=== PATIENT | female | born 1990 | race Two or more races ===

== ENCOUNTER 2022-06-20 06:36 | Outpatient (CLI) | payer OTHER | END 2022-06-20 06:45 | disposition home or self-care (01) | LOC: LAB 06:36 | PROVIDERS: ATTEND Surgery | DX: Z03.818 Encounter for observation for suspected exposure to other biological agents ruled out (principal) ==

== ENCOUNTER 2022-06-21 05:25 | Day surgery (SDC) | payer OTHER | END 2022-06-21 12:25 | disposition home or self-care (01) | LOC: AMB-ENDOS 05:25 | PROVIDERS: ATTEND Surgery | DX: R10.13 Epigastric pain (principal); E66.09 Other obesity due to excess calories; K44.9 Diaphragmatic hernia without obstruction or gangrene; K29.60 Other gastritis without bleeding ==